=== PATIENT | female | born 1940 | race Caucasian/White ===

== ENCOUNTER 2017-02-20 01:37 | Emergency (ER) | payer OTHER ==
[~2017-02-20] VITALS: Ht 167.6 cm; Wt 80.0 kg
[~2017-02-20 01:37] MED LIST: ALEN40TA2 PO; CALC250T PO; CHOL10003 PO; CYCL-259 PO; GABA100C8 PO; HYDR-3241 PO; LEVO112T4 PO; LISI-170 PO; OMEP40CA6 PO; PRAV10TA2 PO; VIT1TABL PO
[2017-02-20 02:20] LABS: ASPARTATE AMINO TRANSFERASE 13 U/L (15-37); BLOOD UREA NITROGEN 19 mg/dL (7-18)
[2017-02-20 03:00] LABS: PATH.CAST-FLAG NOT PRESENT; SPERM-FLAG NOT PRESENT; SRC-FLAG NOT PRESENT; XTAL-FLAG NOT PRESENT; YLC-FLAG NOT PRESENT
[2017-02-20 04:21] VITALS: BP 129/78
== END 2017-02-20 04:22 | disposition home or self-care (01) ==
LOC: ED 03:20
DX: R10.32 Left lower quadrant pain (principal); I10 Essential (primary) hypertension
CPT/HCPCS: 36415; 74176; 80053; 81001; 83690; 85025; 99285

== ENCOUNTER → 2017-12-27 | Outpatient (CLI) | payer OTHER ==
[~2017-12-27] MED LIST changes: +GABA-826 PO; -GABA100C8 PO
== END | disposition home or self-care (01) ==
LOC: CFH 09:45
PROVIDERS: ATTEND Obstetrics & Gynecology
DX: Z12.31 Encounter for screening mammogram for malignant neoplasm of breast (principal); Z13.820 Encounter for screening for osteoporosis; M81.0 Age-related osteoporosis without current pathological fracture; M85.88 Other specified disorders of bone density and structure, other site
CPT/HCPCS: 77080; 77067

== ENCOUNTER 2018-10-22 09:16 | Emergency (ER) | payer MEDICARE, OTHER ==
[~2018-10-22] VITALS: Ht 165.1 cm; Wt 72.9 kg
[2018-10-22 09:38] VITALS: BP 146/69
--- NOTE | 2018-10-22 10:19 | NUR ---
ASSUMED CARE OF PT AT THIS TIME. PT PRESENTS TO ED WITH C/O LEFT LEG SWELLING WITH PAIN AFTER DOG RAN INTO IT ABOUT 2 WEEKS AGO. PT STATES HX OF BC. STATES PAIN IS WORSE AFTER AMBULATING FOR A PERIOD OF TIME. PAIN RESLOVES AFTER SOME REST. DENIES CP AND SOB AT THIS TIME. BREATHING REGULAR AND UNLABORED. MILD AMOUNT OF DISTRESS NOTED. POC DISCUSSED. AWAITING FOR US AT THIS TIME.
--- NOTE | 2018-10-22 10:30 | NUR ---
PT TO US VIA [facility].
--- NOTE | 2018-10-22 11:29 | NUR ---
Results back. Pt up for recheck.
--- NOTE | 2018-10-22 12:20 | NUR ---
PT GIVEN DC PAPERWORK. PT VERBALIZED UNDERSTANDING. PT AWARE TO FOLLOW UP WITH PCP NEEDED.
== END 2018-10-22 12:33 | disposition home or self-care (01) ==
LOC: ED 10:02
DX: I80.01 Phlebitis and thrombophlebitis of superficial vessels of right lower extremity (principal); I10 Essential (primary) hypertension
CPT/HCPCS: 99284

== ENCOUNTER → 2019-01-09 | Outpatient (CLI) | payer OTHER | END | disposition home or self-care (01) | LOC: CFH 10:05 | PROVIDERS: ATTEND Obstetrics & Gynecology | DX: Z12.31 Encounter for screening mammogram for malignant neoplasm of breast (principal); Z88.2 Allergy status to sulfonamides | CPT/HCPCS: 77063; 77067 ==